=== PATIENT | female | born 2000 | race Caucasian/White ===

== ENCOUNTER 2018-10-12 11:31 | Emergency (ER) | payer OTHER ==
[~2018-10-12] VITALS: Ht 172.7 cm; Wt 77.0 kg
--- NOTE | 2018-10-12 11:58 | NUR ---
break rn note: pt bent over this am and hit head on sign, small lac to left head, not bleeding at this time. pt denies loc, pt a&o, resps even and unlabored. wound to be irrigated and stapled. call light in reach.
[2018-10-12] MEDS ORDERED: DIPH,PERTUSS(ACELL),TET VAC/PF 0.5 ML IM-VACC ONE ×3 (13:00→13:35)
--- NOTE | 2018-10-12 13:46 | NUR ---
[facility] IN PLACE, MEDICATED PER ORDERS AND DISCHARGE GIVEN
[2018-10-12 13:47] VITALS: BP 143/83
== END 2018-10-12 14:24 | disposition home or self-care (01) ==
LOC: ED 13:49
DX: S01.01XA Laceration without foreign body of scalp, initial encounter (principal); X58.XXXA Exposure to other specified factors, initial encounter; Y93.89 Activity, other specified; Y92.410 Unspecified street and highway as the place of occurrence of the external cause; Y99.8 Other external cause status
CPT/HCPCS: 12001; 90471; 90715; 99283

== ENCOUNTER 2018-10-15 12:34 | Emergency (ER) | payer OTHER ==
[~2018-10-15] VITALS: Ht 172.7 cm; Wt 75.0 kg
[2018-10-15 12:43] VITALS: BP 122/76
[2018-10-15] MEDS ORDERED: HYDROcodone/APAP 5/325 TABLET PO ONE (14:00)
[2018-10-15] MEDS ORDERED: ONDANSETRON ODT 4 MG PO ONE (14:00)
[2018-10-15] MEDS ORDERED: ONDANSETRON ODT 4 MG ONE (14:36)
[2018-10-15] MEDS ORDERED: HYDROcodone/APAP 5/325 TABLET ONE (14:36)
--- NOTE | 2018-10-15 14:44 | NUR ---
PT MEDICATED PER EMAR, TOLERATED WELL. BRANDEE WRAP APPLIED TO LEFT KNEE BY EDT. FITTED CRUTCHES AND CRUTCH EDUCATION. PT DEMONSTRATES APPROPRIATE USE OF CRUTCHES. PT GIVEN DC INSTRUCTIONS. PT AMB TO DC DESK WITH STEADY GAIT USING CRUTCHES. NADN AT DC.
--- NOTE | 2018-10-15 14:44 | NUR ---
Note jude in EDM - 10/15/18 at 1511 by ANNIE PT MEDICATED PER EMAR, TOLERATED WELL. BRANDEE WRAP APPLIED TO LEFT KNEE BY EDT. FITTED CRUTCHES AND CRUTCH EDUCATION. PT DEMONSTRATES APPROPRIATE USE OF CRUTCHES. PT GIVEN DC INSTRUCTIONS, EDUCATED REGARDING IBUPROFEN AND ROBAXAN RX. PT AMB TO DC DESK WITH STEADY GAIT USING CRUTCHES.
== END 2018-10-15 14:45 | disposition home or self-care (01) ==
LOC: ED 13:16
DX: M25.562 Pain in left knee (principal); X50.0XXA Overexertion from strenuous movement or load, initial encounter; Y93.89 Activity, other specified; Y92.009 Unspecified place in unspecified non-institutional (private) residence as the place of occurrence of the external cause; Y99.8 Other external cause status
CPT/HCPCS: 99283; Q0162